=== PATIENT | female | born 1950 | race Caucasian/White ===

== ENCOUNTER 2018-09-06 07:31 | Day surgery (SDC) | payer OTHER, BC ==
[2018-09-05 13:09] VITALS: BMI 25.8
[2018-09-06] MEDS ORDERED: PROPOFOL 20 ML ONE ×2 (07:40)
[2018-09-06] MEDS ORDERED: LIDOCAINE HCL/PF 2% SDV 5ML VIAL ONE (07:43)
[2018-09-06 09:35] VITALS: TEMP 98.2
[2018-09-06 10:23] VITALS: BP 134/76; PULSE 72
--- NOTE | 2018-09-07 11:47 | PATH ---
Surgical Pathology Report Patient Name: CHARLENE SOLORZANO [facility]. Rec. #: [id number] /Age/Gender: 1950 (Age: 68) / F Account: [id number] Location: [facility] Taken: 09/06/2018 Received: 09/06/2018 Reported: 09/07/2018 Physicians: Henrry Crowell M.D. Specimen(s) Received A: BX DUODENUM B: BX ANTRUM C: BODY D: GE JUNCTION Clinical History GERD Postoperative diagnosis: Gastritis, rule out celiac disease, atrophic gastritis, rule out Vega's Final Diagnosis A. DUODENUM, BIOPSY: DUODENUM MUCOSA WITH NO DIAGNOSTIC ABNORMALITIES. NO HISTOLOGIC EVIDENCE OF CELIAC DISEASE. B. ANTRUM, BIOPSY: GASTRIC MUCOSA WITH REACTIVE GASTROPATHY. NEGATIVE FOR INTESTINAL METAPLASIA. IMMUNOSTAIN FOR H. PYLORI IS NEGATIVE. C. BODY, BIOPSY: GASTRIC MUCOSA WITH MILD CHRONIC GASTRITIS. NEGATIVE FOR INTESTINAL METAPLASIA. IMMUNOSTAIN FOR H. PYLORI IS NEGATIVE. D. GE JUNCTION, BIOPSY: COLUMNAR (GASTRIC) EPITHELIUM WITH MILD CHRONIC INFLAMMATION. NEGATIVE FOR INTESTINAL METAPLASIA. NEGATIVE FOR DYSPLASIA. Electronically Signed Richie Whalen M.D. Gross Description A. Received in formalin, labeled "duodenum" are 2 vera, irregular portions of soft tissue averaging 0.3 cm. in greatest dimension. The specimens are submitted in toto in one cassette. B. Received in formalin, labeled "antrum" are 2 vera, irregular portions of soft tissue averaging 0.3 cm. in greatest dimension. The specimens are submitted in toto in one cassette. C. Received in formalin, labeled "body" are 2 vera, irregular portions of soft tissue averaging 0.3 cm. in greatest dimension. The specimens are submitted in toto in one cassette. D. Received in formalin, labeled "GE junction" is a vera, irregular portion of soft tissue measuring 0.4 cm. in greatest dimension. The specimen is submitted in toto in one cassette. 09/06/201809/06/2018
== END 2018-09-06 10:10 | disposition home or self-care (01) ==
LOC: FASU-ENDO 07:31
PROVIDERS: ATTEND Internal Medicine Gastroenterology
PROC: 0DB48ZX Excision of Esophagogastric Junction, Via Natural or Artificial Opening Endoscopic, Diagnostic (ICD-10-PCS; 2018-09-06)
PROC: 0DB98ZX Excision of Duodenum, Via Natural or Artificial Opening Endoscopic, Diagnostic (ICD-10-PCS; principal; 2018-09-06 09:05)
PROC: 0DB68ZX Excision of Stomach, Via Natural or Artificial Opening Endoscopic, Diagnostic (ICD-10-PCS; 2018-09-06 09:05)
DX: K29.60 Other gastritis without bleeding (principal)
CPT/HCPCS: 88305-TC; 88342-TC

== ENCOUNTER 2019-12-20 07:45 | Day surgery (SDC) | payer OTHER, BC ==
[2019-12-19 17:24] VITALS: BMI 25.7
[2019-12-20 08:16] VITALS: TEMP 98.1
[2019-12-20] MEDS ORDERED: PROPOFOL 20 ML ONE (09:04)
[2019-12-20 10:17] VITALS: BP 117/63; PULSE 76
--- NOTE | 2019-12-24 15:55 | PATH ---
Surgical Pathology Report Patient Name: CHARLENE SOLORZANO [facility]. Rec. #: [id number] /Age/Gender: 1950 (Age: 69) / F Account: [id number] [facility] Taken: 12/20/2019 Received: 12/20/2019 Reported: 12/24/2019 Physicians: Henrry Crowell M.D. Specimen(s) Received A: SECOND PORTION DUODENUM B: ANTRUM Clinical History GERD, screening Postoperative diagnosis: Gastritis, few diverticuli Final Diagnosis A. DUODENUM, SECOND PORTION, BIOPSY: DUODENAL MUCOSA WITHOUT SIGNIFICANT PATHOLOGIC FINDINGS. B. GASTRIC ANTRUM, BIOPSY: GASTRIC ANTRAL MUCOSA WITH MILD CHRONIC GASTRITIS. IMMUNOHISTOCHEMICAL STAIN FOR H. PYLORI IS NEGATIVE. Positive and negative controls (internal if applicable) show appropriate results. Electronically Signed Alejandra Godoy M.D. Gross Description A. Received in formalin, labeled "biopsy second portion of duodenum" are 2 vera, irregular portions of soft tissue measuring 0.2 and 0.4 cm. in greatest dimension. The specimens are submitted in toto in one cassette. B. Received in formalin, labeled "biopsy gastric antrum" are 2 vera, irregular portions of soft tissue averaging 0.3 cm. in greatest dimension. The specimens are submitted in toto in one cassette. 12/21/2019 [facility]12/21/2019
== END 2019-12-20 10:15 | disposition home or self-care (01) ==
LOC: FASU-ENDO 07:45
PROVIDERS: ATTEND Internal Medicine Gastroenterology
PROC: 0DB98ZX Excision of Duodenum, Via Natural or Artificial Opening Endoscopic, Diagnostic (ICD-10-PCS; 2019-12-20)
PROC: 0DB68ZX Excision of Stomach, Via Natural or Artificial Opening Endoscopic, Diagnostic (ICD-10-PCS; 2019-12-20)
PROC: 0DJD8ZZ Inspection of Lower Intestinal Tract, Via Natural or Artificial Opening Endoscopic (ICD-10-PCS; principal; 2019-12-20 08:54)
DX: Z12.11 Encounter for screening for malignant neoplasm of colon (principal); K57.30 Diverticulosis of large intestine without perforation or abscess without bleeding; K29.50 Unspecified chronic gastritis without bleeding
CPT/HCPCS: 43239; G0121; 88305-TC; 88342-TC